=== PATIENT | female | born 1960 | race Two or more races ===

== ENCOUNTER 2018-09-07 22:39 | Emergency (ER) | payer OTHER ==
[2018-09-07 23:01] VITALS: BP 145/86; PULSE 60; TEMP 97.4; BMI 33.8
--- NOTE | 2018-09-07 23:05 | PDOC ---
History of Present Illness - General Chief Complaint: Pain Stated Complaint: HEAD/STOMACH PAIN Time Seen by Provider: 09/07/18 22:43 History Source: Patient, Family Exam Limitations: Language Barrier - History of Present Illness Initial Comments: 09/07/18 23:03 This is a 58-year-old [place] female who comes in with her family for evaluation. Patient is not speaking only so history is via interpretation from her family. Patient recently traveled to [place] and return from [place] within the last 2 weeks. Patient comes in complaining of a migraine headache. Patient has a history of migraines and took sumatriptan for the migraine without relief. Addition to that patient has now developed abdominal pain with some nausea and vomiting. Patient's family said she is also had a low-grade fever of 99. Patient does have a history of hypertension but family otherwise denies any other medical problems in says she does not take any medication for any other medical problems.. Allergies: None Past Medical History: none Social history: Lives with family. No smoking. No alcohol. No illicit drugs. Surgical history: None General: No fevers or chills, no weakness, no weight loss HEENT: No change in vision. No sore throat,. No ear pain, + headache CardioVascular: no chest discomfort. No shortness of breath Respiratory:No cough, or wheezing. Gastrointestinal: + nausea, + vomiting, no diarrhea or constipation, No rectal bleeding Genitourinary: No dysuria, hematuria, or frequency Musculoskeletal: No joint or muscle pain or swelling Neurologic: No headache, vertigo, dizziness or loss of consciousness Psychiatric: nor depression Skin: No rashes or easy bruising Endocrine: no increased thirst or abnormal weight change Allergic: no skin or latex allergy All other systems reviewed and normal Exam: General: Well-nourished well-developed individual, no acute distress HEENT: Throat: Normal, tonsils normal, no erythema or exudate Neck: Supple, no meningeal signs, no lymphadenopathy Eyes::Pupils equal reactive and round, extraocular motion intact Chest: Nontender to palpation Cardiac: S1-S2 normal, regular rate and rhythm, no murmurs rubs or gallops Respiratory: Lungs clear to auscultation bilateral Abdomen: Soft, nondistended, normal bowel sounds, there is no tenderness on palpation diffusely Extremities: Warm, dry, no cyanosis, clubbing, or edema Skin: No rashes Neuro: Alert and oriented x3, CN II - XII intact, nonfocal exam with normal strength, normal sensation, normal reflexes, normal gait, Psych: Normal mood and affect 09/07/18 23:43 Assessment and plan: This is a 58-year-old female who comes in complaining of headache with some associated nausea and vomiting. Patient also complaining of epigastric pain. Workup was initiated including head CT which was negative for any acute pathology Blood work was Patient was given Toradol for the pain Reglan for the nausea and Pepcid for the epigastric discomfort. Patient had a cardiogram that was normal sinus rhythm with no acute ST-T wave changes and normal intervals Patient felt better after the Toradol some IV fluids and medications Patient discharged home will follow-up with her primary care doctor Past History - Past Medical History Allergies/Adverse Reactions: Allergies Allergy/AdvReac Type Severity Reaction Status Date / Time No Known Allergies Allergy Unverified 09/07/18 22:54 Home Medications: Ambulatory Orders Unobtainable 09/07/18 COPD: No HTN: Yes Other medical history: MIGRAINES - Suicide/Smoking/Psychosocial Hx Smoking History: Never smoked *Physical Exam - Vital Signs Last Vital Signs Temp Pulse Resp BP Pulse Ox 97.4 F L 60 16 145/86 99 09/07/18 22:40 09/07/18 22:40 09/07/18 22:40 09/07/18 22:40 09/07/18 22:40 Moderate Sedation - Procedure Monitoring Vital Signs: Procedure Monitoring Vital Signs Temperature 97.4 F L 09/07/18 22:40 Pulse Rate 60 09/07/18 22:40 Respiratory Rate 16 09/07/18 22:40 Blood Pressure 145/86 09/07/18 22:40 O2 Sat by Pulse Oximetry (%) 99 09/07/18 22:40 ED Treatment Course - LABORATORY CBC & Chemistry Diagram: 09/07/18 23:05 09/07/18 23:05 *DC/Admit/Observation/Transfer Diagnosis at time of Disposition: Migraine headache Qualifiers: Migraine type: unspecified Status migrainosus presence: without status migrainosus Intractability: not intractable Qualified Code(s): G43.909 - Migraine, unspecified, not intractable, without status migrainosus - Discharge Dispostion Disposition: HOME Condition at time of disposition: Stable Decision to Admit order: No - Referrals Referrals: Etelvina Amin MD [Primary Care Provider] - - Patient Instructions Additional Instructions: Return to the emergency department immediately with ANY new, persistent or worsening symptoms. Continue any medications as previously prescribed by your physician. You should follow up with your primary doctor as soon as possible regarding today's emergency department visit. . Please make sure your doctor reviews the results of your emergency evaluation. Thank you for coming to the Emergency Department today for your care. It was a pleasure to see you today. Please note that your evaluation is INCOMPLETE until you follow-up with your doctor. - Post Discharge Activity
[2018-09-07] MEDS ORDERED: METOCLOPRAMIDE HCL INJECTION 10 MG/2 ML VIAL IVPUSH ONE (23:06)
[2018-09-07] MEDS ORDERED: METOCLOPRAMIDE HCL INJECTION 10 MG/2 ML VIAL ONE (23:12)
[2018-09-07 23:22] LABS: HEMATOCRIT 38.6 % (32.4-45.2); MEAN CELL VOLUME 71.1 fl (80-96); MEAN PLT VOLUME 8.1 fl (7.5-11.1); PLATELET COUNT 369 K/MM3 (134-434); RBC 5.43 M/mm3 (3.60-5.2); WHITE BLOOD COUNT 9.3 K/mm3 (4.0-10.8)
[2018-09-07] MEDS ORDERED: KETOROLAC TROMETHAMINE 30 MG/1 ML VIAL IVPUSH ONE (23:26)
[2018-09-07] MEDS ORDERED: KETOROLAC TROMETHAMINE 30 MG/1 ML VIAL ONE (23:28)
[2018-09-07 23:33] LABS: ALBUMIN 3.2 g/dl (3.5-5.0); ALK PHOS 93 U/L (32-92); ANION GAP 7 MMOL/L (8-16); BILIRUBIN,TOTAL 0.2 mg/dl (0.2-1.0); BLOOD UREA NITROGEN 17 mg/dl (7-18); CALCIUM 8.9 mg/dl (8.4-10.2); CHLORIDE 101 mmol/L (98-107); CO2 27 mmol/L (22-28); CREATININE 0.9 mg/dl (0.6-1.3); GLUCOSE,RANDOM 102 mg/dl (74-106); POTASSIUM 3.8 mmol/L (3.5-5.1); SGOT/AST 20 U/L (10-42); SGPT/ALT 21 U/L (10-40); SODIUM 135 mmol/L (136-145); TOT PROT 7.1 g/dl (6.4-8.3)
[2018-09-07 23:51] LABS: ADD RBC MORPHOLOGY YES
[2018-09-07 23:53] LABS: SMUDGE CELLS FEW
[2018-09-07 23:54] LABS: ANISOCYTOSIS 1+; PLATELET ESTIMATE ADEQUATE
--- NOTE | 2018-09-09 09:54 | EKG ---
Test Reason : Blood Pressure : / mmHG Vent. Rate : 069 BPM Atrial Rate : 069 BPM P-R Int : 158 ms QRS Dur : 078 ms QT Int : 436 ms P-R-T Axes : 069 046 038 degrees QTc Int : 467 ms NORMAL SINUS RHYTHM NONSPECIFIC ST ABNORMALITY ABNORMAL ECG NO PREVIOUS ECGS AVAILABLE Confirmed by DIANA LOPEZ, JASPER ([id number]) on 09/09/2018 9:54:34 AM Referred By: FREDO Confirmed By:JASPER ORTIZ MD
== END 2018-09-08 | disposition home or self-care (01) ==
LOC: FER 22:39
PROC: 3E0333Z Introduction of Anti-inflammatory into Peripheral Vein, Percutaneous Approach (ICD-10-PCS; principal; 2018-09-07)
PROC: 3E033GC Introduction of Other Therapeutic Substance into Peripheral Vein, Percutaneous Approach (ICD-10-PCS; 2018-09-07)
DX: G43.909 Migraine, unspecified, not intractable, without status migrainosus (principal); I10 Essential (primary) hypertension
CPT/HCPCS: 36415; 70450-TC; 80053; 82550; 84484; 85025; 93005; 99283-25

== ENCOUNTER 2023-08-28 21:40 | Emergency (ER) | payer SELFPAY ==
[2023-08-28 22:05] VITALS: PULSE 66; RESP 16; TEMP 98; BMI 36.6
[2023-08-28 22:25] LABS: HEMOGLOBIN 13.6 G/dL (10.7-15.3); MCH 25.5 pg (25.7-33.7); MCHC 33.2 g/dl (32.0-36.0); MEAN CELL VOLUME 76.9 fl (80-96); MEAN PLT VOLUME 8.6 fl (7.5-11.1); PLATELET COUNT 325.2 10^3/uL (134-434); RBC 5.33 10^6/uL (3.60-5.2); RDW 16.9 % (11.6-15.6); WHITE BLOOD COUNT 12.8 10^3/uL (4.0-10.8)
[2023-08-28 22:28] LABS: INR 1.05 (0.83-1.09); PROTHROMBIN TIME (PATIENT) 12.2 SEC (9.7-13.0)
[2023-08-28 22:37] LABS: BILIRUBIN,TOTAL 0.3 mg/dl (0.2-1); CALCIUM 9.6 mg/dl (8.5-10.1); PLATELET ESTIMATE ADEQUATE; POTASSIUM 4.4 mmol/L (3.5-5.1); TOT PROT 7.8 g/dl (6.4-8.2)
[2023-08-29 00:09] VITALS: BP 146/81
== END 2023-08-29 00:09 | disposition home or self-care (01) ==
LOC: FER 21:40
DX: R51.9 Headache, unspecified (principal); I10 Essential (primary) hypertension
CPT/HCPCS: 36415; 70450-TC; 80053; 84484; 85027; 85610; 93005; 93010; 99285-25